=== PATIENT | female | born 1970 | race African-American/Black ===

== ENCOUNTER 2021-07-02 14:57 | Emergency (ER) | payer OTHER ==
[2021-07-03 14:20] LABS: SARS-CoV-2 PCR by NAA DETECTED (NotDetected)
== END 2021-07-02 15:55 | disposition home or self-care (01) ==
LOC: CSHERS 14:57
DX: U07.1 COVID-19 (principal); E11.9 Type 2 diabetes mellitus without complications; I10 Essential (primary) hypertension; E66.9 Obesity, unspecified
CPT/HCPCS: 99283; U0003; U0005

== ENCOUNTER 2023-04-17 23:37 | Inpatient (IN) | payer MEDICAID, OTHER, SELFPAY ==
[2023-04-17] MEDS ORDERED: Nitroglycerin 0.4 MG TAB (25 Tab Bottle) ONE (23:58)
[2023-04-18 00:03] LABS: #Eosinphils 0.1 10x3/uL (0.0-0.5); #Monocytes 0.7 10x3/uL (0.0-1.1); #Neutrophils 4.7 10x3/uL (1.5-8.4); %Basophils 0.3 % (0.0-2.0); %Eosinophils 0.7 % (0.0-6.0); %Lymphocytes 26.8 % (18.0-47.0); %Monocytes 9.6 % (0.0-10.0); %Neutrophils 62.2 % (40.0-75.0); Hematocrit 42.1 % (34.9-44.5); Hemoglobin 12.8 g/dL (12.0-15.5); Mean Corpuscular HGB CONC 30.4 g/dL (32.0-36.0); Mean Corpuscular Volume 88.8 fl (81.6-98.3); Mean Platelet Volume 10.7 fl (7.4-10.4); Platelet Count 242 10x3/uL (150-450); RBC Distribution Width 16.7 % (11.5-14.5); Red Blood Cell (RBC) Count 4.74 10x6/uL (3.90-5.03); White Blood Cell (WBC) Count 7.5 10x3/uL (3.5-10.5)
[2023-04-18 00:12] LABS: ALT (SGPT) 15 U/L (8-55); AST (SGOT) 14 U/L (5-34); Albumin 4.2 g/dL (3.5-5.0); Alkaline Phosphatase 76 U/L (40-110); Anion Gap 16 mmol/L (10-20); BUN (Urea Nitrogen) 9 mg/dL (9.8-20.1); Bilirubin, Total 0.7 mg/dL (0.2-1.2); Calc. Creatinine Clearance 0 mL/min (70-130); Calcium 9.3 mg/dL (7.8-10.44); Carbon Dioxide 32 mmol/L (22-29); Chloride 98 mmol/L (98-107); Estimated GFR 76; Globulin 3.4 g/dL (2.4-3.5); Glucose 110 mg/dL (70-105); Potassium 4.1 mmol/L (3.5-5.1); Protein, Total 7.6 g/dL (6.0-8.3); Sodium 142 mmol/L (136-145)
[2023-04-18 00:19] LABS: Troponin I Less than 0.010 ng/mL (< 0.028)
[2023-04-18 00:32] LABS: SARS-CoV-2 NAA Rapid Test Not Detected (NotDetected)
[2023-04-18] MEDS ORDERED: Magnesium 2 GM/50 ML BAG (IN WATER) ONE (00:49)
[2023-04-18] MEDS ORDERED: Acetaminophen 500 MG TAB ONE (00:56)
[2023-04-18 01:37] LABS: ALV-art Gradient 52.925 mmHg (0-20); Actual Bicarbonate (HCO3a) 30.4 mEq/L (22-28); Base Excess (BEa) 3.7 mEq/L (-2.0 to +3.0); CO2 Tension 55.1 mmHg (35.0-45.0); Calcium, Ionized (arterial) 1.17 mmol/L (1.12-1.30); Carboxyhemoglobin (COHb) 0.9 gm% (0.0-3.0); Critical Notified By: CP.PH; Hematocrit-ABG 39 % (36.0-47.0); Hemoglobin (Hb) 13.2 g/dL (12.0-16.0); O2 Tension (PaO2), arterial 92.1 mmHg (80.0-100.0); Potassium - ABG Lab 3.95 mmol/L (3.70-5.30); Puncture Site RRA
[2023-04-18] MEDS ORDERED: Furosemide 40 MG/4 ML VIAL ONE (02:41)
[2023-04-18] MEDS ORDERED: Dextrose 5% in Water 1,000 ML IV PRN (03:26)
[2023-04-18] MEDS ORDERED: Dextrose 50% Abboject 50 ML SYRINGE SLOW IVP PRN (03:26)
[2023-04-18] MEDS ORDERED: HumaLOG 300 UNITS/3 ML VIAL SC PRN (03:26)
[2023-04-18] MEDS ORDERED: Senokot S 8.6-50 MG TAB PO PRN (03:26)
[2023-04-18] MEDS ORDERED: Glucagon 1 MG/ML KIT IM PRN (03:26)
[2023-04-18] MEDS ORDERED: Ondansetron PF 4 MG/2 ML Vial IVP PRN (03:26)
[2023-04-18] MEDS ORDERED: Calcium Carbonate 500 MG ChewTAB PO PRN (03:26)
[2023-04-18] MEDS ORDERED: Guaifenesin DM 100-10/5 ML UDCUP PO PRN (03:26)
[2023-04-18] MEDS ORDERED: Ventolin HFA Inhaler 60 PUFF INHALER INH PRN (03:29)
[2023-04-18] MEDS ORDERED: Ipratropium/Albuterol 3 ML NEB NEB PRN (03:34)
[2023-04-18 04:48] LABS: Anion Gap 13 mmol/L (10-20); BUN (Urea Nitrogen) 9 mg/dL (9.8-20.1); Calc. Creatinine Clearance 203 mL/min (70-130); Calcium 9.5 mg/dL (7.8-10.44); Carbon Dioxide 33 mmol/L (22-29); Chloride 99 mmol/L (98-107); Estimated GFR 81; Glucose 107 mg/dL (70-105); Sodium 141 mmol/L (136-145)
[2023-04-18 04:56] LABS: Troponin I Less than 0.010 ng/mL (< 0.028)
[2023-04-18] MEDS: Mometasone/Formoterol 200/5 60 PUFF INH SCH ×2 (06:50→18:26)
[2023-04-18] MEDS ORDERED: Carvedilol 6.25 MG TAB PO SCH (08:00)
[2023-04-18] MEDS ORDERED: Electrolyte Replacement Protocol 1 EACH FS SCH (08:15)
[2023-04-18] MEDS: Sertraline 100 MG TAB PO SCH ×2 (08:47→08:48)
[2023-04-18] MEDS: Potassium Chloride 10 MEQ TAB PO SCH (08:48)
[2023-04-18] MEDS: Loratadine 10 MG TAB PO SCH (08:48)
[2023-04-18] MEDS: glipiZIDE 5 MG TAB PO SCH ×2 (08:49→16:19)
[2023-04-18] MEDS: busPIRone HCl 5 MG TAB PO SCH ×2 (08:49→20:05)
[2023-04-18] MEDS ORDERED: Losartan 25 MG TAB PO SCH ×2 (09:00→12:30)
[2023-04-18] MEDS ORDERED: Empagliflozin 25 MG TAB PO SCH (09:00)
[2023-04-18] MEDS: Acetaminophen 325 MG TAB PO PRN (13:53)
[2023-04-18] MEDS: Carvedilol 3.125 MG TAB PO SCH (16:21)
[2023-04-18] MEDS ORDERED: Atorvastatin Calcium 10 MG TAB PO SCH (21:00)
[2023-04-19] MEDS: Acetaminophen 325 MG TAB PO PRN (03:50)
[2023-04-19 04:33] LABS: #Eosinphils 0.1 10x3/uL (0.0-0.5); #Monocytes 0.6 10x3/uL (0.0-1.1); #Neutrophils 3.1 10x3/uL (1.5-8.4); %Basophils 0.4 % (0.0-2.0); %Eosinophils 0.9 % (0.0-6.0); %Lymphocytes 31.1 % (18.0-47.0); %Monocytes 10.4 % (0.0-10.0); %Neutrophils 56.8 % (40.0-75.0); Hematocrit 42.6 % (34.9-44.5); Hemoglobin 12.9 g/dL (12.0-15.5); Mean Corpuscular HGB CONC 30.3 g/dL (32.0-36.0); Mean Corpuscular Hemoglobin 27.1 pg (27.0-33.0); Mean Corpuscular Volume 89.5 fl (81.6-98.3); Mean Platelet Volume 11.2 fl (7.4-10.4); Platelet Count 221 10x3/uL (150-450); RBC Distribution Width 16.6 % (11.5-14.5); Red Blood Cell (RBC) Count 4.76 10x6/uL (3.90-5.03); White Blood Cell (WBC) Count 5.4 10x3/uL (3.5-10.5)
[2023-04-19 04:40] LABS: ALT (SGPT) 13 U/L (8-55); AST (SGOT) 14 U/L (5-34); Albumin 3.8 g/dL (3.5-5.0); Alkaline Phosphatase 67 U/L (40-110); Anion Gap 16 mmol/L (10-20); BUN (Urea Nitrogen) 14 mg/dL (9.8-20.1); Bilirubin, Total 0.7 mg/dL (0.2-1.2); Calc. Creatinine Clearance 201 mL/min (70-130); Calcium 9.3 mg/dL (7.8-10.44); Carbon Dioxide 31 mmol/L (22-29); Chloride 99 mmol/L (98-107); Estimated GFR 80; Globulin 3.9 g/dL (2.4-3.5); Glucose 85 mg/dL (70-105); Magnesium 2.2 mg/dL (1.6-2.6); Potassium 4.6 mmol/L (3.5-5.1); Protein, Total 7.7 g/dL (6.0-8.3); Sodium 141 mmol/L (136-145)
[2023-04-19 06:22] VITALS: BMI 62.8
[2023-04-19] MEDS ORDERED: glipiZIDE 5 MG TAB PO SCH (07:30)
[2023-04-19] MEDS: Mometasone/Formoterol 200/5 60 PUFF INH SCH (07:32)
[2023-04-19] MEDS: Sertraline 100 MG TAB PO SCH (07:46)
[2023-04-19] MEDS: Potassium Chloride 10 MEQ TAB PO SCH (07:47)
[2023-04-19] MEDS: Loratadine 10 MG TAB PO SCH (07:47)
[2023-04-19] MEDS: Carvedilol 3.125 MG TAB PO SCH (07:48)
[2023-04-19] MEDS: busPIRone HCl 5 MG TAB PO SCH (07:49)
[2023-04-19 07:57] VITALS: TEMP 98.4
[2023-04-19] MEDS ORDERED: Losartan 25 MG TAB PO SCH (09:00)
[2023-04-19] MEDS ORDERED: Furosemide 20 MG/2 ML VIAL SLOW IVP SCH (09:00)
[2023-04-19 10:59] VITALS: BP 114/85
== END 2023-04-19 10:39 | disposition home or self-care (01) | DRG 291 ==
LOC: CSHERS 23:37 → CSHIMCU 04-18 03:28
PROVIDERS: ADMIT Student in an Organized Health Care Education/Training Program; ATTEND Internal Medicine
PROC: 5A09357 Assistance with Respiratory Ventilation, Less than 24 Consecutive Hours, Continuous Positive Airway Pressure (ICD-10-PCS; principal; 2023-04-18)
PROC: 4A033R1 Measurement of Arterial Saturation, Peripheral, Percutaneous Approach (ICD-10-PCS; 2023-04-18)
DX: I13.0 Hypertensive heart and chronic kidney disease with heart failure and stage 1 through stage 4 chronic kidney disease, or unspecified chronic kidney disease (principal); I50.33 Acute on chronic diastolic (congestive) heart failure; J96.21 Acute and chronic respiratory failure with hypoxia; J96.22 Acute and chronic respiratory failure with hypercapnia; I16.1 Hypertensive emergency; J98.11 Atelectasis; I16.9 Hypertensive crisis, unspecified; Z68.44 Body mass index [BMI] 60.0-69.9, adult; E66.01 Morbid (severe) obesity due to excess calories; J45.909 Unspecified asthma, uncomplicated; K59.00 Constipation, unspecified; E78.5 Hyperlipidemia, unspecified; Z20.822 Contact with and (suspected) exposure to COVID-19; E78.00 Pure hypercholesterolemia, unspecified; F41.9 Anxiety disorder, unspecified; F32.A Depression, unspecified; F43.10 Post-traumatic stress disorder, unspecified; E11.649 Type 2 diabetes mellitus with hypoglycemia without coma; N18.2 Chronic kidney disease, stage 2 (mild); E11.22 Type 2 diabetes mellitus with diabetic chronic kidney disease; G47.30 Sleep apnea, unspecified; Z79.51 Long term (current) use of inhaled steroids; Z79.899 Other long term (current) drug therapy; Z79.84 Long term (current) use of oral hypoglycemic drugs; Z90.49 Acquired absence of other specified parts of digestive tract; Z98.890 Other specified postprocedural states
CPT/HCPCS: 36415; 36416; 36600; 71045; 71250; 80048; 80053; 82805; 83735; 83880; 84443; 84484; 85025; 93005; 93306; 94660; 94664; 94760; 94762; 96374; 96375; J1650; J1940; J3475

== ENCOUNTER 2023-07-12 09:49 | Inpatient (IN) | payer OTHER, SELFPAY ==
[2023-07-12] MEDS ORDERED: Iopamidol 370 76% 100 ML VIAL ONE (10:10)
[2023-07-12 10:28] LABS: #Eosinphils 0.1 10x3/uL (0.0-0.5); #Monocytes 0.6 10x3/uL (0.0-1.1); #Neutrophils 4.9 10x3/uL (1.5-8.4); %Basophils 0.4 % (0.0-2.0); %Eosinophils 0.7 % (0.0-6.0); %Lymphocytes 23.9 % (18.0-47.0); %Monocytes 8.5 % (0.0-10.0); %Neutrophils 65.8 % (40.0-75.0); Hematocrit 38.7 % (34.9-44.5); Hemoglobin 11.2 g/dL (12.0-15.5); Mean Corpuscular HGB CONC 28.9 g/dL (32.0-36.0); Mean Corpuscular Hemoglobin 26.9 pg (27.0-33.0); Mean Platelet Volume 10.8 fl (7.4-10.4); Platelet Count 261 10x3/uL (150-450); RBC Distribution Width 17.6 % (11.5-14.5); Red Blood Cell (RBC) Count 4.16 10x6/uL (3.90-5.03); White Blood Cell (WBC) Count 7.4 10x3/uL (3.5-10.5)
[2023-07-12 10:40] LABS: INR-International Normal Ratio 1.1; PTT 28.2 sec (22.0-33.0); Prothrombin Time 11.6 sec (9.5-12.1)
[2023-07-12 10:45] LABS: ALT (SGPT) 25 U/L (8-55); AST (SGOT) 16 U/L (5-34); Albumin 3.9 g/dL (3.5-5.0); Alkaline Phosphatase 67 U/L (40-110); Anion Gap 13 mmol/L (10-20); BUN (Urea Nitrogen) 9 mg/dL (9.8-20.1); Bilirubin, Total 0.7 mg/dL (0.2-1.2); Calc. Creatinine Clearance 0 mL/min (70-130); Calcium 8.9 mg/dL (7.8-10.44); Carbon Dioxide 36 mmol/L (22-29); Chloride 96 mmol/L (98-107); Estimated GFR 84; Globulin 3.2 g/dL (2.4-3.5); Glucose 193 mg/dL (70-105); Magnesium 2.1 mg/dL (1.6-2.6); Potassium 4.2 mmol/L (3.5-5.1); Protein, Total 7.1 g/dL (6.0-8.3); Sodium 141 mmol/L (136-145)
[2023-07-12 10:48] LABS: Troponin I Less than 0.010 ng/mL (< 0.028)
[2023-07-12 10:50] LABS: Hypochromia MODERATE=16-30 cells (100X) (0-5/hpf); Microcytosis SLIGHT = 6-15 cells (100X) (0-5/hpf)
[2023-07-12 11:09] LABS: ALV-art Gradient 149.825 mmHg (0-20); Actual Bicarbonate (HCO3a) 38.9 mEq/L (22-28); Analyzer IN Cardio CS ER; Base Excess (BEa) 9.8 mEq/L (-2.0 to +3.0); CO2 Tension 79.9 mmHg (35.0-45.0); Calcium, Ionized (arterial) 1.17 mmol/L (1.12-1.30); Carboxyhemoglobin (COHb) 1.3 gm% (0.0-3.0); Hematocrit-ABG 35 % (36.0-47.0); Hemoglobin (Hb) 11.9 g/dL (12.0-16.0); O2 Tension (PaO2), arterial 106.8 mmHg (80.0-100.0); Potassium - ABG Lab 3.92 mmol/L (3.70-5.30); Puncture Site RRA; pH, Arterial 7.305 (7.35-7.45)
[2023-07-12 11:35] LABS: SARS-CoV-2 NAA Rapid Test Not Detected (NotDetected)
[2023-07-12] MEDS ORDERED: Furosemide 40 MG/4 ML VIAL ONE (12:01)
[2023-07-12 12:09] LABS: Acetaminophen Less than 10 mcg/mL (10.0-30.0); Alcohol Less than 10.0 mg/dL (Less than 10); Salicylate Less than 8.0 mg/dL (15.0-30.0)
[2023-07-12 12:26] LABS: Actual Bicarbonate (HCO3a) 42.2 mEq/L (22-28); Analyzer IN Cardio CS ER; Base Excess (BEa) 9.9 mEq/L (-2.0 to +3.0); CO2 Tension 114.5 mmHg (35.0-45.0); Calcium, Ionized (arterial) 1.21 mmol/L (1.12-1.30); Carboxyhemoglobin (COHb) 1.1 gm% (0.0-3.0); Hematocrit-ABG 36 % (36.0-47.0); Hemoglobin (Hb) 12.3 g/dL (12.0-16.0); O2 Tension (PaO2), arterial 112.3 mmHg (80.0-100.0); Potassium - ABG Lab 4.19 mmol/L (3.70-5.30); Puncture Site RRA; pH, Arterial 7.184 (7.35-7.45)
[2023-07-12] MEDS ORDERED: Propofol 1,000 MG/100 ML VIAL IV ONE ×2 (12:27→14:55)
[2023-07-12] MEDS ORDERED: Succinylcholine 200 MG/10 ml SYRINGE FS ONE ×2 (12:28)
[2023-07-12 12:46] LABS: Free T4 (Free Thyroxine) 0.87 ng/dL (0.70-1.48)
[2023-07-12] MEDS ORDERED: Electrolyte Replacement Protocol 1 EACH IVPB PRN (13:11)
[2023-07-12] MEDS ORDERED: Ipratropium/Albuterol 3 ML NEB NEB PRN (13:11)
[2023-07-12] MEDS ORDERED: Acetaminophen 650 MG Suppository PR PRN (13:11)
[2023-07-12] MEDS ORDERED: Artificial Tear Sol 15 ML BOT EA EYE PRN (13:11)
[2023-07-12] MEDS ORDERED: NOREPINEPHRINE 8 MG/250 ML-D5W 250 ML IVPB PRN (13:11)
[2023-07-12] MEDS ORDERED: Bisacodyl 5 MG TAB PO PRN (13:11)
[2023-07-12] MEDS ORDERED: HumaLOG 300 UNITS/3 ML VIAL SC PRN (13:11)
[2023-07-12] MEDS ORDERED: Dextrose 5% in Water 1,000 ML IV PRN (13:11)
[2023-07-12] MEDS ORDERED: Glucagon 1 MG/ML KIT IM PRN (13:11)
[2023-07-12] MEDS ORDERED: Moisturizing Cream (Eucerin) 113 GM JAR TOP PRN (13:11)
[2023-07-12] MEDS ORDERED: Senokot S 8.6-50 MG TAB PO PRN (13:11)
[2023-07-12] MEDS ORDERED: Dextrose 50% Abboject 50 ML SYRINGE SLOW IVP PRN (13:11)
[2023-07-12] MEDS ORDERED: Ondansetron PF 4 MG/2 ML Vial IVP PRN (13:11)
[2023-07-12 13:13] LABS: Troponin I Less than 0.010 ng/mL (< 0.028)
[2023-07-12] MEDS ORDERED: Ventilator Sedation Protocol 1 EACH FS PRN (13:15)
[2023-07-12] MEDS ORDERED: Naloxone HCl 0.4 mg/ml Vial IV PRN (13:21)
[2023-07-12 14:14] LABS: Lactic Acid 0.8 mmol/L (0.5-2.2)
[2023-07-12] MEDS ORDERED: Fentanyl BOLUS 250 ML IVPB PRN (14:15)
[2023-07-12] MEDS ORDERED: Propofol BOLUS 1,000 MG/100 ML VIAL IV PRN (14:15)
[2023-07-12 16:27] LABS: Troponin I Less than 0.010 ng/mL (< 0.028)
[2023-07-12 17:03] LABS: Amphetamine Not Detected (NotDetected); Barbiturates Screen Not Detected (NotDetected); Benzodiazepine Screen Not Detected (NotDetected); Cocaine Metabolite Screen Not Detected (NotDetected); Methadone Not Detected (NotDetected); Methamphetamine Not Detected (NotDetected); Opiate Screen Not Detected (NotDetected); Oxycodone Screen Not Detected (NotDetected); Phencyclidine (PCP) Not Detected (NotDetected); THC/Cannabinoid Screen Not Detected (NotDetected); Tricyclic Screen Not Detected (NotDetected)
[2023-07-12 17:44] LABS: Actual Bicarbonate (HCO3a) 41.6 mEq/L (22-28); Analyzer IN Cardio CS ER; Base Excess (BEa) 16.6 mEq/L (-2.0 to +3.0); CO2 Tension 51.5 mmHg (35.0-45.0); Calcium, Ionized (arterial) 1.11 mmol/L (1.12-1.30); Carboxyhemoglobin (COHb) 0.5 gm% (0.0-3.0); Hematocrit-ABG 35 % (36.0-47.0); Hemoglobin (Hb) 11.8 g/dL (12.0-16.0); O2 Tension (PaO2), arterial 70.9 mmHg (80.0-100.0); Potassium - ABG Lab 3.36 mmol/L (3.70-5.30); Puncture Site LRA; pH, Arterial 7.525 (7.35-7.45)
[2023-07-12] MEDS: Carvedilol 3.125 MG TAB PO SCH (18:20)
[2023-07-12] MEDS: Propofol 1,000 MG/100 ML VIAL IV PRN ×3 (18:55→21:57)
[2023-07-12] MEDS: Cholecalciferol 1,000 UNITS (25 MCG) TAB PO SCH (21:17)
[2023-07-12] MEDS: Atorvastatin Calcium 10 MG TAB PO SCH (21:17)
[2023-07-12] MEDS: pyridOXINE 50 MG (B6) TAB PO SCH (21:17)
[2023-07-12] MEDS: acetaZOLAMIDE Sodium 500 mg Vial IVP SCH (21:17)
[2023-07-12] MEDS: Famotidine/PF 20 mg/2ml Vial SLOW IVP SCH (21:17)
[2023-07-12] MEDS: busPIRone HCl 5 MG TAB PO SCH (21:17)
[2023-07-12] MEDS: FENTANYL 2,000MCG/100-0.9%NACL 100 ML IVPB SCH (22:49)
[2023-07-13] MEDS: Propofol 1,000 MG/100 ML VIAL IV PRN ×8 (00:07→22:27)
[2023-07-13 03:28] LABS: Actual Bicarbonate (HCO3a) 39.2 mEq/L (22-28); Analyzer IN Cardio CS ICU; Base Excess (BEa) 15.1 mEq/L (-2.0 to +3.0); CO2 Tension 46.2 mmHg (35.0-45.0); Calcium, Ionized (arterial) 1.14 mmol/L (1.12-1.30); Carboxyhemoglobin (COHb) 0.8 gm% (0.0-3.0); Critical Notified By: CP.PH; Hematocrit-ABG 35 % (36.0-47.0); Hemoglobin (Hb) 11.9 g/dL (12.0-16.0); O2 Tension (PaO2), arterial 71.5 mmHg (80.0-100.0); Potassium - ABG Lab 3.23 mmol/L (3.70-5.30); Puncture Site RRA; RapidComm Collect By CP.PH; pH, Arterial 7.547 (7.35-7.45)
[2023-07-13 05:40] LABS: #Basophils 0.1 10x3/uL (0.0-0.2); #Eosinphils 0.1 10x3/uL (0.0-0.5); #Neutrophils 5.9 10x3/uL (1.5-8.4); %Basophils 0.6 % (0.0-2.0); %Eosinophils 0.8 % (0.0-6.0); %Lymphocytes 19.2 % (18.0-47.0); %Monocytes 11.3 % (0.0-10.0); %Neutrophils 67.4 % (40.0-75.0); Hematocrit 37.1 % (34.9-44.5); Hemoglobin 11.4 g/dL (12.0-15.5); Mean Corpuscular HGB CONC 30.7 g/dL (32.0-36.0); Mean Corpuscular Hemoglobin 27.3 pg (27.0-33.0); Mean Platelet Volume 11.9 fl (7.4-10.4); Platelet Count 229 10x3/uL (150-450); RBC Distribution Width 17.8 % (11.5-14.5); Red Blood Cell (RBC) Count 4.17 10x6/uL (3.90-5.03); White Blood Cell (WBC) Count 8.8 10x3/uL (3.5-10.5)
[2023-07-13 05:47] LABS: ALT (SGPT) 20 U/L (8-55); AST (SGOT) 15 U/L (5-34); Albumin 3.4 g/dL (3.5-5.0); Alkaline Phosphatase 63 U/L (40-110); Anion Gap 13 mmol/L (10-20); BUN (Urea Nitrogen) 8 mg/dL (9.8-20.1); Bilirubin, Total 1.2 mg/dL (0.2-1.2); Calc. Creatinine Clearance 212 mL/min (70-130); Calcium 9.2 mg/dL (7.8-10.44); Carbon Dioxide 32 mmol/L (22-29); Chloride 98 mmol/L (98-107); Estimated GFR 77; Globulin 3.5 g/dL (2.4-3.5); Glucose 135 mg/dL (70-105); Potassium 3.4 mmol/L (3.5-5.1); Protein, Total 6.9 g/dL (6.0-8.3); Sodium 140 mmol/L (136-145)
[2023-07-13] MEDS: Famotidine/PF 20 mg/2ml Vial SLOW IVP SCH ×2 (08:16→22:02)
[2023-07-13] MEDS: busPIRone HCl 5 MG TAB PO SCH ×2 (08:17→22:01)
[2023-07-13] MEDS: Thiamine 100 MG TAB PO SCH (08:17)
[2023-07-13] MEDS: Carvedilol 3.125 MG TAB PO SCH ×2 (08:17→17:24)
[2023-07-13] MEDS: Sertraline 100 MG TAB PO SCH (08:17)
[2023-07-13] MEDS: Ascorbic Acid 500 mg Chewable Tablet PO SCH (08:17)
[2023-07-13] MEDS: Potassium Chloride 20 MEQ in Premix 1 BAG IVPB SCH ×2 (08:17→10:51)
[2023-07-13] MEDS: acetaZOLAMIDE Sodium 500 mg Vial IVP SCH ×2 (08:18→22:03)
[2023-07-13] MEDS ORDERED: FLU VACC QS2023-24(6MOS UP)/PF 60 MCG/0.5 ML SYRINGE IM ONE (09:00)
[2023-07-13] MEDS ORDERED: Empagliflozin 10 MG TAB PO SCH (09:00)
[2023-07-13] MEDS ORDERED: Furosemide 40 MG/4 ML VIAL SLOW IVP SCH (14:00)
[2023-07-13] MEDS: FENTANYL 2,000MCG/100-0.9%NACL 100 ML IVPB SCH (15:10)
[2023-07-13] MEDS: pyridOXINE 50 MG (B6) TAB PO SCH (22:02)
[2023-07-13] MEDS: Cholecalciferol 1,000 UNITS (25 MCG) TAB PO SCH (22:02)
[2023-07-13] MEDS: Atorvastatin Calcium 10 MG TAB PO SCH (22:02)
[2023-07-13] MEDS: Furosemide 40 MG/4 ML VIAL SLOW IVP SCH (22:03)
[2023-07-14] MEDS: Propofol 1,000 MG/100 ML VIAL IV PRN ×5 (04:06→18:16)
[2023-07-14 04:50] LABS: Actual Bicarbonate (HCO3a) 31.5 mEq/L (22-28); Analyzer IN Cardio CS ICU; CO2 Tension 55.2 mmHg (35.0-45.0); Calcium, Ionized (arterial) 1.17 mmol/L (1.12-1.30); Carboxyhemoglobin (COHb) 1.2 gm% (0.0-3.0); Critical Notified By: Udy, RRT; Hematocrit-ABG 37 % (36.0-47.0); Hemoglobin (Hb) 12.5 g/dL (12.0-16.0); O2 Tension (PaO2), arterial 43.6 mmHg (80.0-100.0); Potassium - ABG Lab 3.39 mmol/L (3.70-5.30); Puncture Site RRA; RapidComm Collect By Udy, RRT; pH, Arterial 7.374 (7.35-7.45)
[2023-07-14 04:51] LABS: #Eosinphils 0.1 10x3/uL (0.0-0.5); #Monocytes 0.9 10x3/uL (0.0-1.1); %Basophils 0.5 % (0.0-2.0); %Eosinophils 1.2 % (0.0-6.0); %Monocytes 11.7 % (0.0-10.0); %Neutrophils 64.9 % (40.0-75.0); Hematocrit 39.8 % (34.9-44.5); Hemoglobin 11.9 g/dL (12.0-15.5); Mean Corpuscular HGB CONC 29.9 g/dL (32.0-36.0); Mean Corpuscular Hemoglobin 26.7 pg (27.0-33.0); Mean Corpuscular Volume 89.2 fl (81.6-98.3); Mean Platelet Volume 11.6 fl (7.4-10.4); Platelet Count 244 10x3/uL (150-450); RBC Distribution Width 18.1 % (11.5-14.5); Red Blood Cell (RBC) Count 4.46 10x6/uL (3.90-5.03); White Blood Cell (WBC) Count 7.6 10x3/uL (3.5-10.5)
[2023-07-14 04:53] LABS: ALT (SGPT) 18 U/L (8-55); AST (SGOT) 14 U/L (5-34); Albumin 3.5 g/dL (3.5-5.0); Alkaline Phosphatase 66 U/L (40-110); Anion Gap 17 mmol/L (10-20); BUN (Urea Nitrogen) 11 mg/dL (9.8-20.1); Bilirubin, Total 1.2 mg/dL (0.2-1.2); Calc. Creatinine Clearance 155 mL/min (70-130); Calcium 9.3 mg/dL (7.8-10.44); Carbon Dioxide 26 mmol/L (22-29); Chloride 99 mmol/L (98-107); Estimated GFR 54; Globulin 3.9 g/dL (2.4-3.5); Glucose 125 mg/dL (70-105); Potassium 3.3 mmol/L (3.5-5.1); Protein, Total 7.4 g/dL (6.0-8.3); Sodium 139 mmol/L (136-145)
[2023-07-14] MEDS ORDERED: Potassium Bicarbonate/Cit Ac 20 MEQ TAB PO SCH (05:15)
[2023-07-14] MEDS: FENTANYL 2,000MCG/100-0.9%NACL 100 ML IVPB SCH (05:29)
[2023-07-14] MEDS: acetaZOLAMIDE Sodium 500 mg Vial IVP SCH ×2 (09:04→21:17)
[2023-07-14] MEDS: Furosemide 40 MG/4 ML VIAL SLOW IVP SCH ×2 (09:04→21:17)
[2023-07-14] MEDS: Famotidine/PF 20 mg/2ml Vial SLOW IVP SCH ×2 (09:04→21:17)
[2023-07-14] MEDS: busPIRone HCl 5 MG TAB PO SCH ×2 (09:05→21:16)
[2023-07-14] MEDS: Carvedilol 3.125 MG TAB PO SCH ×2 (09:05→18:16)
[2023-07-14] MEDS: Ascorbic Acid 500 mg Chewable Tablet PO SCH (09:05)
[2023-07-14] MEDS: Thiamine 100 MG TAB PO SCH (09:05)
[2023-07-14] MEDS: Sertraline 100 MG TAB PO SCH (09:05)
[2023-07-14] MEDS: pyridOXINE 50 MG (B6) TAB PO SCH (21:16)
[2023-07-14] MEDS: Cholecalciferol 1,000 UNITS (25 MCG) TAB PO SCH (21:16)
[2023-07-14] MEDS: Atorvastatin Calcium 10 MG TAB PO SCH (21:16)
[2023-07-14] MEDS: methylPREDNISolone Sod Succ 40 MG VIAL IVP SCH (21:17)
[2023-07-15] MEDS: Propofol 1,000 MG/100 ML VIAL IV PRN ×9 (00:43→23:50)
[2023-07-15] MEDS: FENTANYL 2,000MCG/100-0.9%NACL 100 ML IVPB SCH ×2 (02:46→20:34)
[2023-07-15 03:28] LABS: Actual Bicarbonate (HCO3a) 30.1 mEq/L (22-28); Analyzer IN Cardio CS ICU; Base Excess (BEa) 2.4 mEq/L (-2.0 to +3.0); CO2 Tension 60.5 mmHg (35.0-45.0); Calcium, Ionized (arterial) 1.17 mmol/L (1.12-1.30); Carboxyhemoglobin (COHb) 1.2 gm% (0.0-3.0); Critical Notified By: Udy, RRT; Hematocrit-ABG 38 % (36.0-47.0); O2 Tension (PaO2), arterial 70.5 mmHg (80.0-100.0); Potassium - ABG Lab 3.96 mmol/L (3.70-5.30); Puncture Site RRA; RapidComm Collect By Udy, RRT; pH, Arterial 7.314 (7.35-7.45)
[2023-07-15 03:29] LABS: ALV-art Gradient 139.075 mmHg (0-20)
[2023-07-15] MEDS: Furosemide 40 MG/4 ML VIAL SLOW IVP SCH ×2 (08:17→20:05)
[2023-07-15] MEDS: Famotidine/PF 20 mg/2ml Vial SLOW IVP SCH ×2 (08:17→20:05)
[2023-07-15] MEDS: methylPREDNISolone Sod Succ 40 MG VIAL IVP SCH ×2 (08:17→20:05)
[2023-07-15] MEDS: Ascorbic Acid 500 mg Chewable Tablet PO SCH (08:18)
[2023-07-15] MEDS: Thiamine 100 MG TAB PO SCH (08:18)
[2023-07-15] MEDS: Sertraline 100 MG TAB PO SCH (08:18)
[2023-07-15] MEDS: Carvedilol 3.125 MG TAB PO SCH ×2 (08:18→17:24)
[2023-07-15] MEDS: busPIRone HCl 5 MG TAB PO SCH ×2 (08:18→20:06)
[2023-07-15] MEDS: acetaZOLAMIDE Sodium 500 mg Vial IVP SCH ×2 (08:19→20:05)
[2023-07-15] MEDS: HumaLOG 300 UNITS/3 ML VIAL SC PRN ×2 (12:15→17:57)
[2023-07-15] MEDS: Acetaminophen 325 MG TAB PO PRN (14:43)
[2023-07-15] MEDS: Polyethylene Glycol 3350 17 GM Packet PO PRN (14:43)
[2023-07-15] MEDS: Ipratropium/Albuterol 3 ML NEB NEB SCH ×2 (15:38→19:10)
[2023-07-15 19:52] LABS: #Monocytes 1.1 10x3/uL (0.0-1.1); #Neutrophils 16.3 10x3/uL (1.5-8.4); %Basophils 0.1 % (0.0-2.0); %Lymphocytes 3.4 % (18.0-47.0); %Monocytes 6.2 % (0.0-10.0); %Neutrophils 89.7 % (40.0-75.0); Hematocrit 35.6 % (34.9-44.5); Mean Corpuscular HGB CONC 30.9 g/dL (32.0-36.0); Mean Corpuscular Hemoglobin 26.8 pg (27.0-33.0); Mean Corpuscular Volume 86.8 fl (81.6-98.3); Mean Platelet Volume 11.1 fl (7.4-10.4); Platelet Count 252 10x3/uL (150-450); RBC Distribution Width 16.9 % (11.5-14.5); White Blood Cell (WBC) Count 18.1 10x3/uL (3.5-10.5)
[2023-07-15] MEDS: Atorvastatin Calcium 10 MG TAB PO SCH (20:07)
[2023-07-15] MEDS: Cholecalciferol 1,000 UNITS (25 MCG) TAB PO SCH (20:07)
[2023-07-15] MEDS: pyridOXINE 50 MG (B6) TAB PO SCH (20:07)
[2023-07-15 20:11] LABS: Anion Gap 18 mmol/L (10-20); BUN (Urea Nitrogen) 29 mg/dL (9.8-20.1); Calc. Creatinine Clearance 145 mL/min (70-130); Calcium 9.4 mg/dL (7.8-10.44); Carbon Dioxide 26 mmol/L (22-29); Chloride 96 mmol/L (98-107); Estimated GFR 51; Glucose 210 mg/dL (70-105); Potassium 3.6 mmol/L (3.5-5.1); Sodium 136 mmol/L (136-145)
[2023-07-15] MEDS ORDERED: Piperacillin/Tazobactam 3.375 GM in Sodium Chloride 0.9% 100 ML IVPB SCH (22:30)
[2023-07-15] MEDS: Vancomycin 1.5 GM in Sodium Chloride 0.9% 500 ML IVPB SCH (23:06)
[2023-07-16] MEDS: Propofol 1,000 MG/100 ML VIAL IV PRN ×4 (02:50→10:41)
[2023-07-16 04:37] LABS: #Monocytes 1.1 10x3/uL (0.0-1.1); %Basophils 0.1 % (0.0-2.0); %Lymphocytes 3.3 % (18.0-47.0); %Monocytes 6.2 % (0.0-10.0); Hemoglobin 10.9 g/dL (12.0-15.5); Mean Corpuscular HGB CONC 32.1 g/dL (32.0-36.0); Mean Corpuscular Hemoglobin 27.7 pg (27.0-33.0); Mean Corpuscular Volume 86.3 fl (81.6-98.3); Platelet Count 272 10x3/uL (150-450); RBC Distribution Width 16.9 % (11.5-14.5); Red Blood Cell (RBC) Count 3.94 10x6/uL (3.90-5.03); White Blood Cell (WBC) Count 17.8 10x3/uL (3.5-10.5)
[2023-07-16 04:48] LABS: ALT (SGPT) 12 U/L (8-55); AST (SGOT) 11 U/L (5-34); Albumin 3.4 g/dL (3.5-5.0); Alkaline Phosphatase 73 U/L (40-110); Anion Gap 17 mmol/L (10-20); BUN (Urea Nitrogen) 33 mg/dL (9.8-20.1); Bilirubin, Total 0.8 mg/dL (0.2-1.2); Calc. Creatinine Clearance 144 mL/min (70-130); Calcium 9.2 mg/dL (7.8-10.44); Carbon Dioxide 26 mmol/L (22-29); Chloride 96 mmol/L (98-107); Estimated GFR 50; Globulin 4.4 g/dL (2.4-3.5); Glucose 238 mg/dL (70-105); Potassium 3.7 mmol/L (3.5-5.1); Protein, Total 7.8 g/dL (6.0-8.3); Sodium 135 mmol/L (136-145)
[2023-07-16] MEDS: Piperacillin/Tazobactam 3.375 GM in Sodium Chloride 0.9% 100 ML IVPB SCH ×3 (05:41→22:16)
[2023-07-16] MEDS: HumaLOG 300 UNITS/3 ML VIAL SC PRN ×3 (05:51→17:36)
[2023-07-16] MEDS: Ipratropium/Albuterol 3 ML NEB NEB SCH ×4 (06:30→18:42)
[2023-07-16 06:40] LABS: Actual Bicarbonate (HCO3v) 24.3 mEq/L (22-28); Analyzer IN Cardio CS ICU; Base Excess 0.5 mEq/L (-2 - +2); Calcium, Ionized (venous) 1.12 mmol/L (1.16-1.32); Chloride (VBG) 98 mmol/L (98-106); Hematocrit-VBG 43 % (36.0-47.0); Hemoglobin (Hb) 14.6 g/dL (11.7-16.0); Potassium (VBG) 4.67 mmol/L (3.70-5.30); Puncture Site Other Site; Sodium 130 mmol/L (133-146)
[2023-07-16] MEDS: Carvedilol 3.125 MG TAB PO SCH ×2 (08:22→17:24)
[2023-07-16] MEDS: acetaZOLAMIDE Sodium 500 mg Vial IVP SCH (08:22)
[2023-07-16] MEDS: Ascorbic Acid 500 mg Chewable Tablet PO SCH (08:23)
[2023-07-16] MEDS: Thiamine 100 MG TAB PO SCH (08:24)
[2023-07-16] MEDS: busPIRone HCl 5 MG TAB PO SCH ×2 (08:24→20:11)
[2023-07-16] MEDS: Famotidine/PF 20 mg/2ml Vial SLOW IVP SCH ×2 (08:24→20:12)
[2023-07-16] MEDS: Furosemide 40 MG/4 ML VIAL SLOW IVP SCH (08:24)
[2023-07-16] MEDS: methylPREDNISolone Sod Succ 40 MG VIAL IVP SCH (08:24)
[2023-07-16] MEDS: Sertraline 100 MG TAB PO SCH (08:25)
[2023-07-16] MEDS: Dexmedetomidine In 0.9 % NaCl 100 ML IVPB SCH ×4 (12:26→22:55)
[2023-07-16] MEDS ORDERED: Dexmedetomidine In 0.9 % NaCl 100 ML IVPB SCH (12:30)
[2023-07-16] MEDS: Vancomycin 1.5 GM in Sodium Chloride 0.9% 500 ML IVPB SCH (12:56)
[2023-07-16] MEDS: Lorazepam 2 MG/ML VIAL SLOW IVP PRN ×2 (14:08→22:35)
[2023-07-16] MEDS: Atorvastatin Calcium 10 MG TAB PO SCH (20:11)
[2023-07-17] MEDS: HumaLOG 300 UNITS/3 ML VIAL SC PRN ×4 (00:01→17:54)
[2023-07-17] MEDS: Vancomycin 1.5 GM in Sodium Chloride 0.9% 500 ML IVPB SCH (00:23)
[2023-07-17] MEDS: Morphine 2 MG/ML VIAL SLOW IVP PRN ×4 (00:28→22:04)
[2023-07-17] MEDS: Dexmedetomidine In 0.9 % NaCl 100 ML IVPB SCH ×11 (02:15→22:05)
[2023-07-17 03:10] LABS: #Monocytes 1.9 10x3/uL (0.0-1.1); #Neutrophils 14.7 10x3/uL (1.5-8.4); %Basophils 0.2 % (0.0-2.0); %Eosinophils 0.1 % (0.0-6.0); %Lymphocytes 5.8 % (18.0-47.0); %Monocytes 10.9 % (0.0-10.0); %Neutrophils 82.3 % (40.0-75.0); Hemoglobin 10.9 g/dL (12.0-15.5); Mean Corpuscular HGB CONC 32.1 g/dL (32.0-36.0); Mean Corpuscular Hemoglobin 27.3 pg (27.0-33.0); Mean Platelet Volume 11.2 fl (7.4-10.4); Platelet Count 281 10x3/uL (150-450); RBC Distribution Width 16.9 % (11.5-14.5); White Blood Cell (WBC) Count 17.8 10x3/uL (3.5-10.5)
[2023-07-17 03:26] LABS: Anion Gap 17 mmol/L (10-20); BUN (Urea Nitrogen) 39 mg/dL (9.8-20.1); Calc. Creatinine Clearance 147 mL/min (70-130); Calcium 9.2 mg/dL (7.8-10.44); Carbon Dioxide 27 mmol/L (22-29); Chloride 99 mmol/L (98-107); Estimated GFR 52; Glucose 187 mg/dL (70-105); Potassium 3.5 mmol/L (3.5-5.1); Sodium 139 mmol/L (136-145)
[2023-07-17] MEDS: Lorazepam 2 MG/ML VIAL SLOW IVP PRN ×2 (05:00→14:48)
[2023-07-17] MEDS: Piperacillin/Tazobactam 3.375 GM in Sodium Chloride 0.9% 100 ML IVPB SCH ×3 (05:11→21:50)
[2023-07-17] MEDS: Potassium Chloride 20 MEQ in Premix 1 BAG IVPB SCH ×2 (06:20→08:30)
[2023-07-17] MEDS: Ipratropium/Albuterol 3 ML NEB NEB SCH ×4 (07:15→18:48)
[2023-07-17] MEDS: Propofol 1,000 MG/100 ML VIAL IV PRN ×8 (07:30→22:05)
[2023-07-17] MEDS ORDERED: Furosemide 40 MG/4 ML VIAL SLOW IVP SCH (09:00)
[2023-07-17] MEDS ORDERED: Potassium Chloride 20 MEQ/100 ML PREMIX BAG ONE (09:32)
[2023-07-17] MEDS: busPIRone HCl 5 MG TAB PO SCH ×2 (09:40→19:55)
[2023-07-17] MEDS: Carvedilol 3.125 MG TAB PO SCH ×3 (09:40→17:17)
[2023-07-17] MEDS: Famotidine/PF 20 mg/2ml Vial SLOW IVP SCH ×2 (09:41→19:55)
[2023-07-17] MEDS: Sertraline 100 MG TAB PO SCH (09:41)
[2023-07-17 11:28] LABS: Vancomycin, Trough 20.9 ug/mL
[2023-07-17 11:34] VITALS: BMI 64.0
[2023-07-17] MEDS: Vancomycin 1 GM in Sodium Chloride 0.9% 250 ML 250 ML IVPB SCH (12:41)
[2023-07-17] MEDS: Acetaminophen 325 MG TAB PO PRN (13:10)
[2023-07-17] MEDS: Polyethylene Glycol 3350 17 GM Packet PO PRN (14:49)
[2023-07-17 16:22] VITALS: TEMP 100
[2023-07-17] MEDS: Atorvastatin Calcium 10 MG TAB PO SCH (19:53)
[2023-07-18] MEDS: Dexmedetomidine In 0.9 % NaCl 100 ML IVPB SCH ×2 (00:11→02:39)
[2023-07-18] MEDS: Propofol 1,000 MG/100 ML VIAL IV PRN ×3 (00:12→05:00)
[2023-07-18] MEDS: Vancomycin 1 GM in Sodium Chloride 0.9% 250 ML 250 ML IVPB SCH (00:15)
[2023-07-18 03:10] LABS: Actual Bicarbonate (HCO3a) 30.1 mEq/L (22-28); Analyzer IN Cardio CS ICU; Base Excess (BEa) 2.5 mEq/L (-2.0 to +3.0); Calcium, Ionized (arterial) 1.15 mmol/L (1.12-1.30); Carboxyhemoglobin (COHb) 0.6 gm% (0.0-3.0); Hematocrit-ABG 34 % (36.0-47.0); Hemoglobin (Hb) 11.4 g/dL (12.0-16.0); O2 Tension (PaO2), arterial 59.1 mmHg (80.0-100.0); Potassium - ABG Lab 3.74 mmol/L (3.70-5.30); Puncture Site LRA; pH, Arterial 7.304 (7.35-7.45)
[2023-07-18 04:43] LABS: #Basophils 0.1 10x3/uL (0.0-0.2); #Eosinphils 0.3 10x3/uL (0.0-0.5); #Monocytes 3.1 10x3/uL (0.0-1.1); #Neutrophils 17.3 10x3/uL (1.5-8.4); %Basophils 0.4 % (0.0-2.0); %Eosinophils 1.4 % (0.0-6.0); %Lymphocytes 6.2 % (18.0-47.0); %Monocytes 13.8 % (0.0-10.0); %Neutrophils 76.6 % (40.0-75.0); Hematocrit 33.9 % (34.9-44.5); Hemoglobin 10.2 g/dL (12.0-15.5); Mean Corpuscular HGB CONC 30.1 g/dL (32.0-36.0); Mean Corpuscular Hemoglobin 26.5 pg (27.0-33.0); Mean Corpuscular Volume 88.1 fl (81.6-98.3); Mean Platelet Volume 11.9 fl (7.4-10.4); Platelet Count 309 10x3/uL (150-450); RBC Distribution Width 17.2 % (11.5-14.5); Red Blood Cell (RBC) Count 3.85 10x6/uL (3.90-5.03); White Blood Cell (WBC) Count 22.6 10x3/uL (3.5-10.5)
[2023-07-18 05:10] LABS: ALT (SGPT) 13 U/L (8-55); AST (SGOT) 16 U/L (5-34); Alkaline Phosphatase 82 U/L (40-110); Anion Gap 16 mmol/L (10-20); BUN (Urea Nitrogen) 44 mg/dL (9.8-20.1); Bilirubin, Total 1.3 mg/dL (0.2-1.2); Calc. Creatinine Clearance 113 mL/min (70-130); Calcium 9.2 mg/dL (7.8-10.44); Carbon Dioxide 27 mmol/L (22-29); Chloride 100 mmol/L (98-107); Estimated GFR 37; Globulin 4.6 g/dL (2.4-3.5); Glucose 189 mg/dL (70-105); Potassium 3.8 mmol/L (3.5-5.1); Protein, Total 7.6 g/dL (6.0-8.3); Sodium 139 mmol/L (136-145)
[2023-07-18] MEDS: Piperacillin/Tazobactam 3.375 GM in Sodium Chloride 0.9% 100 ML IVPB SCH (05:40)
[2023-07-18 05:47] LABS: CRP (Inflammatory) 43.98 mg/dL (= or < 0.5)
[2023-07-18] MEDS ORDERED: NOREPINEPHRINE 8 MG/250 ML-D5W 250 ML ONE (06:26)
[2023-07-18] MEDS ORDERED: Phenylephrine 40 MG/NS 250 ML 40 MG in Premix 1 BAG IVPB SCH (06:45)
[2023-07-18] MEDS ORDERED: EPINEPHrine 4 MG in Dextrose 5% in Water 250 ML IVP SCH (07:00)
[2023-07-18] MEDS ORDERED: PHENYLEPHRINE-NS 100 MCG/ML 10 ML SYRINGE IVP SCH (07:00)
[2023-07-18] MEDS ORDERED: Hydrocortisone Sod Succ/PF 100 mg/2 ml Vial ONE (07:29)
[2023-07-18] MEDS ORDERED: Vasopressin 20 UNITS/ML VIAL ONE (07:37)
[2023-07-18] MEDS ORDERED: Sodium Bicarbonate 150 MEQ in Dextrose 5% in Water 1,000 ML IV SCH (08:00)
[2023-07-18 08:13] LABS: INR-International Normal Ratio 1.3; Prothrombin Time 14.1 sec (9.5-12.1)
[2023-07-18 08:28] LABS: Troponin I 0.066 ng/mL (< 0.028)
[2023-07-18 09:06] LABS: Phosphorus 5.9 mg/dL (2.3-4.7)
[2023-07-18 09:07] LABS: ALT (SGPT) 36 U/L (8-55); AST (SGOT) 67 U/L (5-34); Albumin 2.7 g/dL (3.5-5.0); Alkaline Phosphatase 102 U/L (40-110); Anion Gap 22 mmol/L (10-20); BUN (Urea Nitrogen) 46 mg/dL (9.8-20.1); Bilirubin, Total 1.6 mg/dL (0.2-1.2); Calc. Creatinine Clearance 83 mL/min (70-130); Calcium 9.5 mg/dL (7.8-10.44); Carbon Dioxide 24 mmol/L (22-29); Chloride 101 mmol/L (98-107); Estimated GFR 26; Globulin 3.1 g/dL (2.4-3.5); Glucose 185 mg/dL (70-105); Magnesium 3.4 mg/dL (1.6-2.6); Potassium 4.4 mmol/L (3.5-5.1); Protein, Total 5.8 g/dL (6.0-8.3); Sodium 143 mmol/L (136-145)
[2023-07-18 10:15] LABS: Actual Bicarbonate (HCO3v) 25.8 mEq/L (22-28); Analyzer IN Cardio CS ICU; Base Excess -6.8 mEq/L (-2 - +2); Calcium, Ionized (venous) 1.33 mmol/L (1.16-1.32); Chloride (VBG) 100 mmol/L (98-106); Hematocrit-VBG 31 % (36.0-47.0); Hemoglobin (Hb) 10.4 g/dL (11.7-16.0); Potassium (VBG) 4.45 mmol/L (3.70-5.30); Puncture Site Other Site; Sodium 142 mmol/L (133-146); pH (venous) 7.004 (7.32-7.43)
[2023-07-18 10:38] VITALS: BP 83/38
[2023-07-18] MEDS ORDERED: Sodium Bicarb 50 MEQ/50 ML Abboject 8.4% SYRINGE ONE ×2 (12:00→13:00)
[2023-07-18] MEDS ORDERED: Calcium Chloride 1 GM/10 ML Abboject SYRINGE ONE ×2 (12:00→13:00)
[2023-07-18] MEDS ORDERED: Magnesium 5 GM/10 ML VIAL ONE (12:00)
[2023-07-18] MEDS ORDERED: EPINEPHrine 1 MG/10 ML Abboject SYRINGE ONE ×2 (12:00→13:00)
[2023-07-19] MEDS ORDERED: Famotidine/PF 20 mg/2ml Vial SLOW IVP SCH (09:00)
== END 2023-07-18 13:25 | disposition expired | DRG 207 ==
LOC: CSHERS 09:49 → CSHERHOLD 11:58 → CSHICU 15:43
PROVIDERS: ADMIT Family Medicine; ATTEND Hospitalist
PROC: 5A1955Z Respiratory Ventilation, Greater than 96 Consecutive Hours (ICD-10-PCS; 2023-07-12)
PROC: 4A133R1 Monitoring of Arterial Saturation, Peripheral, Percutaneous Approach (ICD-10-PCS; 2023-07-12)
PROC: 3E033XZ Introduction of Vasopressor into Peripheral Vein, Percutaneous Approach (ICD-10-PCS; 2023-07-12)
PROC: 0BH17EZ Insertion of Endotracheal Airway into Trachea, Via Natural or Artificial Opening (ICD-10-PCS; 2023-07-12)
PROC: 0W9930Z Drainage of Right Pleural Cavity with Drainage Device, Percutaneous Approach (ICD-10-PCS; 2023-07-17)
PROC: 5A12012 Performance of Cardiac Output, Single, Manual (ICD-10-PCS; principal; 2023-07-18)
PROC: 06HY33Z Insertion of Infusion Device into Lower Vein, Percutaneous Approach (ICD-10-PCS; 2023-07-18)
DX: J96.22 Acute and chronic respiratory failure with hypercapnia (principal); G93.41 Metabolic encephalopathy; I50.33 Acute on chronic diastolic (congestive) heart failure; J15.211 Pneumonia due to Methicillin susceptible Staphylococcus aureus; E66.2 Morbid (severe) obesity with alveolar hypoventilation; Z68.44 Body mass index [BMI] 60.0-69.9, adult; N17.9 Acute kidney failure, unspecified; J93.9 Pneumothorax, unspecified; I42.9 Cardiomyopathy, unspecified; E87.4 Mixed disorder of acid-base balance; Z66 Do not resuscitate; J96.21 Acute and chronic respiratory failure with hypoxia; I46.8 Cardiac arrest due to other underlying condition; R57.0 Cardiogenic shock; I11.0 Hypertensive heart disease with heart failure; J45.909 Unspecified asthma, uncomplicated; F41.9 Anxiety disorder, unspecified; F32.A Depression, unspecified; E11.9 Type 2 diabetes mellitus without complications; Z79.899 Other long term (current) drug therapy; Z79.51 Long term (current) use of inhaled steroids; Z99.81 Dependence on supplemental oxygen; Z90.49 Acquired absence of other specified parts of digestive tract; Z98.890 Other specified postprocedural states; Z79.84 Long term (current) use of oral hypoglycemic drugs; Z11.52 Encounter for screening for COVID-19; E78.00 Pure hypercholesterolemia, unspecified; F43.10 Post-traumatic stress disorder, unspecified
CPT/HCPCS: 36415; 36416; 36600; 70450; 71045; 71275; 80048; 80053; 80202; 80306; 80307; 82140; 82607; 82805; 83605; 83735; 83880; 84100; 84439; 84443; 84481; 84484; 85025; 85610; 85730; 86140; 87040; 87070; 87077; 87186; 87205; 93005; 94002; 94003; 94640; 94667; 94668; 94669; 94760; 94762; J0171; J1120; J1650; J1720; J1815; J1940; J2060; J2272; J2543; J2704; J2920; J3370; J3475; J3480; J3490; J7030; J7050; J7070; J7620; Q9967; S0028